=== PATIENT | male | born 1945 | race Caucasian/White ===

== ENCOUNTER 2017-05-31 18:11 | Inpatient (IN) | payer MEDICARE ==
[2017-05-31 18:20] VITALS: BMI 33.1
[2017-05-31 20:51] LABS: BASO % 0.6 % (0.0-2.0); EOS # 0.3 K/uL (0.0-0.7); HEMOGLOBIN 12.3 g/dL (12.0-18.0); LYMPH # 1.6 K/uL (1.0-4.3); LYMPH % 24.5 % (20.0-40.0); MEAN CELL VOLUME 90.7 fL (80.0-94.0); MEAN CORPUSCULAR HEMOGLOBIN 31.1 pg (27.0-31.0); MEAN CORPUSCULAR HGB CONC 34.3 g/dL (33.0-37.0); MONO # 0.4 K/uL (0.0-0.8); MONO % 6.5 % (0.0-10.0); NEUT # 4.3 K/uL (1.8-7.0); NEUT % 64.4 % (50.0-75.0); RBC 3.96 Mil/uL (4.40-5.90); RED CELL DISTRIBUTION WIDTH 12.4 % (11.5-14.5); WHITE BLOOD COUNT 6.7 K/uL (4.8-10.8)
[2017-05-31 20:59] LABS: ALB/GLOB RATIO 1.2 (1.0-2.1); ALBUMIN 4.3 g/dL (3.5-5.0); ALT/SGPT 35 U/L (21-72); AST/SGOT 25 U/L (17-59); BLOOD UREA NITROGEN 23 mg/dL (9-20); CALCIUM 9.3 mg/dl (8.6-10.4); GFR AFRICAN-AMERICAN 38; GFR NON-AFRICAN AMERICAN 31; HDL CHOLESTEROL 31 mg/dL (30-70); MAGNESIUM 1.6 mg/dL (1.6-2.3)
[2017-05-31 21:10] LABS: LDL CHOLESTEROL 88 mg/dL (0-129)
--- NOTE | 2017-05-31 21:48 | CT ---
EXAM: CT Head Without Intravenous Contrast CLINICAL HISTORY: 72 years old, male; Signs and symptoms; Hemiplegia and hemiparesis; Dominant right side; Other: Numbness; Additional info: Left sided numbness x 3 days TECHNIQUE: Axial computed tomography images of the head/brain without intravenous contrast. All CT scans at this facility use one or more dose reduction techniques, viz.: automated exposure control; ma/kV adjustment per patient size (including targeted exams where dose is matched to indication; i.e. head); or iterative reconstruction technique. Coronal and sagittal reformatted images were created and reviewed. COMPARISON: No relevant prior studies available. FINDINGS: Brain: Mild atrophy. No intracranial hemorrhage. No mass. Few scattered foci of decreased attenuation within periventricular/subcortical white matter. No definite edema. Ventricles: No hydrocephalus. Bones/joints: No acute fracture. Soft tissues: Unremarkable. Vasculature: Mild atherosclerotic disease of intracranial arteries. Sinuses: No acute sinusitis. Mastoid air cells: No mastoid effusion. Orbits: Unremarkable as visualized. IMPRESSION: 1. Nonspecific white matter changes. Acute infarction may be CT occult within first 24 hours. If a focal deficit persists, consider followup CT or MRI for further evaluation. 2. Incidental/non-acute findings are described above.
--- NOTE | 2017-05-31 22:15 | C.PDOC ---
Time Seen by Provider: 05/31/17 20:19 Chief Complaint (Nursing): Weakness/Neurological Deficit History Per: Patient, Family (daughter) Onset/Duration Of Symptoms: Days (3) Current Symptoms Are (Timing): Still Present Seizure Or Post-ictal Symptoms: None Fall Associated With With Symptoms: No Injury As Result Of Fall Severity: Moderate Additional History Per: Prior Records - Symptoms Of CVA Character Of Deficits: Left: Sensory Loss, Arm: Sensory Loss, Leg: Sensory Loss Recent Head Trauma: No Past Medical History Reviewed: Historical Data, Nursing Documentation, Vital Signs Vital Signs: Last Vital Signs Temp 98.1 F 05/31/17 20:14 Pulse 74 05/31/17 20:14 Resp 19 05/31/17 20:14 BP 153/75 H 05/31/17 20:14 Pulse Ox 97 05/31/17 20:14 - Medical History PMH: Anxiety, CAD, Depression, Diabetes, Diverticulitis, HTN, Hypercholesterolemia, Hyperthyroidism, Hypothyroidism, Kidney Stones, Pancreatitis, Chronic Kidney Disease, TIA Surgical History: Cholecystectomy, Coronary Stent, Hernia Repair (right inguinal ) - [facility] Procedures CLOSED ENDOSCOPIC BIOPSY OF LARGE INTESTINE (09/23/13) ESOPHAGOGASTRODUODENOSCOPY [EGD] W/CLOSED BIOPSY (04/15/14) Family History: States: Unknown Family Hx - Social History Hx Tobacco Use: No Hx Alcohol Use: No Hx Substance Use: No - Immunization History Hx Tetanus Toxoid Vaccination: Yes Hx Influenza Vaccination: Yes Hx Pneumococcal Vaccination: Yes Review Of Systems Except As Marked, All Systems Reviewed And Found Negative. Constitutional: Negative for: Fever Eyes: Negative for: Vision Change Cardiovascular: Negative for: Chest Pain Respiratory: Negative for: Shortness of Breath Gastrointestinal: Negative for: Vomiting, Abdominal Pain Musculoskeletal: Negative for: Neck Pain, Back Pain Skin: Negative for: Rash Neurological: Positive for: Numbness (left side). Negative for: Seizures, Headache Physical Exam - Physical Exam Appears: No Acute Distress, Chronically Ill Skin: Normal Color, Warm, Dry Head: Atraumatic, Normacephalic Eye(s): bilateral: PERRL, EOMI Neck: Normal ROM, Supple Cardiovascular: Rhythm Regular Respiratory: Normal Breath Sounds, No Accessory Muscle Use Gastrointestinal/Abdominal: Soft, No Tenderness Extremity: Normal ROM Neurological/Psych: Oriented x3, Normal Speech, No Cerebellar Signs, Normal Motor, No Normal Sensation (subjective difference in sensation between left and right side) ED Course And Treatment - Laboratory Results Result Diagrams: 05/31/17 20:42 05/31/17 20:42 Interpretation Of Abnormal: Renal insufficiency ECG: Interpreted By Me, Viewed By Me ECG Rhythm: Sinus Rhythm, Nonspecific Changes ECG Interpretation: No Acute Changes Rate From EC O2 Sat by Pulse Oximetry: 97 Pulse Ox Interpretation: Normal - CT Scan/US CT head Other Rad Studies (CT/US): Read By Radiologist, Radiology Report Reviewed CT/US Interpretation: IMPRESSION: 1. Nonspecific white matter changes. Acute infarction may be CT occult within. first 24 hours. If a focal deficit persists, consider followup CT or MRI for. further evaluation. 2. Incidental/ non-acute findings are described above. - Physician Consult Information Physician Contacted: Josiah Ayala (Neuro) Outcome Of Conversation: He wants pt admitted to the hospital for further evaluation and treatment. NIHSS Stroke Scale 2 - Date/Time Evaluation Performed Date Performed: 05/31/17 When Was NIHSS Performed: Baseline - How Severe is the Stroke Level of Consciousness: 0=Alert LOC to Questions: 0=Both comments correct LOC to commands: 0=Obeys both correctly Best Gaze: 0=Normal Visual: 0=No visual loss Facial: 0=Normal Motor Arm - Left: 0=No drift Motor Arm - Right: 0=No drift Motor Leg - Left: 0=No drift Motor Leg - Right: 0=No drift Limb Ataxia: 0=Absent Sensory: 1=Mild to moderate loss Best Language: 0=No aphasia Dysarthia: 0=Normal articulation Extinction & Inattention (Neglect): 0=Normal, no object Score: 1 Severity Of Stroke: 1-4 = Minor Stroke Progress - Interventions Interventions:: Observation, Intravenous fluid - Medications Administered Oral: Aspirin - Data Reviewed Data Reviewed: Lab, Diagnostic imaging, EKG, Old records - Patient Status Patient status: Unchanged - Continuity of Care Discussed patient case with:: Patient, Family-HIPPA compliant, ED Nurse Discussed pt. case with senior telecommunications consultant/specialty: Neurology - Patient Plan Patient Plan: Admission, Telemetry rTPA Inclusion/Exclusion - Inclusion Criteria for Altepase Patient is 18 years or Older: Yes The Clinical Diagnosis of Ischemic Stroke That is Causing a Potentially Disabling Neurological Deficit: Yes Time of Onset is Well Established to be Less Than 270 Minute Before Treatment Would Begin: No Risk/Benefit Discussed With Patient/Family Member Present: No - Warning to TPA With Conditions Condition: Stroke Serevity Too Mild Disposition Discussed With Dr.: Edvin Hung Comment: He accepted pt on his service. Doctor Will See Patient In The: Hospital Counseled Patient/Family Regarding: Studies Performed, Diagnosis - Disposition Disposition: HOSPITALIZED Disposition Time: 22:19 Condition: FAIR - Clinical Impression Clinical Impression: Left sided numbness
[2017-05-31] MEDS ORDERED: Sodium Chloride 0.9% 1,000 ML ONE (22:39)
[2017-05-31] MEDS: Sodium Chloride 0.9% 1,000 ML IV SCH (22:40)
[2017-06-01 07:38] VITALS: RESP 20
--- NOTE | 2017-06-01 09:02 | RAD ---
HISTORY: Left side numbness COMPARISON: 06/11/2015 FINDINGS: LUNGS: No active pulmonary disease. PLEURA: No significant pleural effusion identified, no pneumothorax apparent. CARDIOVASCULAR: Normal. OSSEOUS STRUCTURES: No significant abnormalities. VISUALIZED UPPER ABDOMEN: Normal. OTHER FINDINGS: None. IMPRESSION: No active disease.
[2017-06-01] MEDS: Sodium Chloride 0.9% 1,000 ML IV SCH (09:42)
--- NOTE | 2017-06-01 11:59 | MRI ---
PROCEDURE: MRI of the brain 06/01/2017. HISTORY: Left sided weakness COMPARISON: Comparison made with CT scan brain dated 05/31/2017. Correlation also made with concurrent MRA's of the neck and brain. TECHNIQUE: Multiplanar, multisequence MR images of the brain were obtained without intravenous contrast enhancement. FINDINGS: HEMORRHAGE: No acute parenchymal, subarachnoid or extra-axial hemorrhage. . No evidence of hemosiderin deposition is identified on gradient echo weighted sequence. DWI: No evidence of an acute or early subacute infarction seen on diffusion imaging. BRAIN PARENCHYMA: Minimal slightly confluent prolonged T2 signal changes seen within the periventricular white matter with multiple small more discrete focal areas of increased T2 signal scattered about the deep and subcortical white matter both cerebral hemispheres. There also appear to be a few scattered on foci of similar signal both basal nuclei Changes are most likely represent chronic sequela of small vessel disease. Mild moderate age-appropriate volume loss. VENTRICLES: No obstructive hydrocephalus. CRANIUM: No acute calvarial abnormalities are identified. . ORBITS: Changes of bilateral cataract surgery again noted. PARANASAL SINUSES/MASTOIDS: Clear VASCULAR SYSTEM: Visualized major vascular flow voids at skull base are patent. OTHER FINDINGS: None. IMPRESSION: No acute intracranial hemorrhage or infarct. Mild chronic white matter ischemic changes. Mild moderate generalized volume loss.
--- NOTE | 2017-06-01 12:04 | MRI ---
PROCEDURE: Magnetic Resonance Angiography Brain HISTORY: Left-sided weakness COMPARISON: Correlation made with concurrent MRA of the neck and MRI brain. TECHNIQUE: 3D time of flight MR angiography of the intracranial arteries was performed. Rotating maximum intensity projection images were generated. FINDINGS: INTERNAL CAROTID ARTERIES: Unremarkable. The skull base, petrous, cavernous and supraclinoid segments are bilaterally widely patient. ANTERIOR CEREBRAL ARTERIES: Unremarkable. A1 and A2 segments are widely patent. Smaller distal branches unremarkable, as visualized. MIDDLE CEREBRAL ARTERIES: Unremarkable. M1 and M2 segments are widely patent. Perisylvian branches grossly symmetric. POSTERIOR CIRCULATION: Basilar Artery: Unremarkable. Distal Vertebral Arteries: Unremarkable. Posterior Cerebral Arteries: There is a origin of the right posterior cerebral artery with secondary mild hypoplasia of the P1 segment arising from the basilar artery. Posterior Inferior Cerebellar Arteries: Unremarkable. ANEURYSM/ VASCULAR MALFORMATIONS: No evidence of large aneurysm nor vascular malformation. . OTHER FINDINGS: None. IMPRESSION: Unremarkable MR angiography of the brain no evidence of occlusion or significant stenotic lesions seen. .
--- NOTE | 2017-06-01 12:17 | CP.PCM.CON ---
History of Present Illness - History of Present Illness History of Present Illness: 72 yr old male who presents with left arm numbness and tingling, duration for less than one day, and a vague complaint of dizziness. He denies headache, dysarthria, aphasia, but there was a complaint of left face, arm and leg sensory complaints. PMH: Anxiety, CAD, Depression, Diabetes, Diverticulitis, HTN, Hypercholesterolemia, Hyperthyroidism, Hypothyroidism, Kidney Stones, Pancreatitis, Chronic Kidney Disease, TIA Surgical History: Cholecystectomy, Coronary Stent, Hernia Repair (right inguinal ) CLOSED ENDOSCOPIC BIOPSY OF LARGE INTESTINE (09/23/13) ESOPHAGOGASTRODUODENOSCOPY [EGD] W/CLOSED BIOPSY (04/15/14) Family History: States: Unknown Family Hx SH: Patient is comoran speaking only. It is unknown what he does for work or if smokes or drinks. on exam: Exam conducted in comoran AAOX3. Pupils 3mm-2mm with light. EOMI. CN 2-12 normal. No diplopia. VFF motor: strength: normal bilaterally. sensory: decreased ft, pin left face, and arm. NO rhomberg. DTR: +2 ul and ll bl. Toes downgoing, no clonus. Gait normal. Past Patient History - Infectious Disease Hx of Infectious Diseases: None - Tetanus Immunizations Tetanus Immunization: Unknown - Past Medical History & Family History Past Medical History?: Yes - Past Social History Smoking Status: Never Smoked - CARDIAC Hx Hypercholesterolemia: Yes Hx Hypertension: Yes - PULMONARY Hx Respiratory Disorders: No - NEUROLOGICAL Hx Transient Ischemic Attacks (TIA): Yes - HEENT Hx HEENT Problems: Yes Hx Glaucoma: Yes - RENAL Hx Chronic Kidney Disease: Yes Hx Kidney Stones: Yes - ENDOCRINE/METABOLIC Hx Hyperthyroidism: Yes Hx Hypothyroidism: Yes - HEMATOLOGICAL/ONCOLOGICAL Hx Blood Disorders: No - INTEGUMENTARY Hx Dermatological Problems: No - MUSCULOSKELETAL/RHEUMATOLOGICAL Hx Musculoskeletal Disorders: No Hx Falls: No - GASTROINTESTINAL Hx Diverticulitis: Yes Hx Pancreatitis: Yes - GENITOURINARY/GYNECOLOGICAL Hx Genitourinary Disorders: No - PSYCHIATRIC Hx Anxiety: Yes Hx Depression: Yes Hx Substance Use: No - SURGICAL HISTORY Hx Cholecystectomy: Yes Hx Coronary Stent: Yes - ANESTHESIA Hx Anesthesia: Yes Hx Anesthesia Reactions: No Hx Malignant Hyperthermia: No Meds Allergies/Adverse Reactions: Allergies Allergy/AdvReac Type Severity Reaction Status Date / Time No Known Allergies Allergy Verified 05/31/17 18:19 - Medications Medications: Current Medications Aspirin (Aspirin Chewable) 81 mg PO DAILY [facility] Sodium Chloride (Sodium Chloride 0.9%) 1,000 mls @ 100 mls/hr IV .Q10H MAGDI Last Admin: 06/01/17 09:42 Dose: 100 mls/hr Results - Vital Signs Recent Vital Signs: Last Vital Signs Temp 97.5 F L 06/01/17 07:24 Pulse 64 06/01/17 07:24 Resp 20 06/01/17 07:24 BP 119/58 L 06/01/17 07:24 Pulse Ox 97 06/01/17 07:24 - Labs Result Diagrams: 05/31/17 20:42 05/31/17 20:42 Labs: Laboratory Results - last 24 hr 05/31/17 05/31/17 05/31/17 20:42 20:42 20:42 WBC 6.7 RBC 3.96 L Hgb 12.3 Hct 35.9 MCV 90.7 MCH 31.1 H MCHC 34.3 RDW 12.4 Plt Count 280 MPV 8.0 Neut % (Auto) 64.4 Lymph % (Auto) 24.5 [place] % (Auto) 6.5 Eos % (Auto) 4.0 Baso % (Auto) 0.6 Neut # (Auto) 4.3 Lymph # (Auto) 1.6 [place] # (Auto) 0.4 Eos # (Auto) 0.3 Baso # (Auto) 0.0 PT 11.0 INR 1.0 APTT 30 Sodium 135 Potassium 4.7 Chloride 98 Carbon Dioxide 22 Anion Gap 20 BUN 23 H Creatinine 2.1 H Est GFR ( Amer) 38 Est GFR (Non-Af Amer) 31 Random Glucose 112 H Hemoglobin A1c Calcium 9.3 Magnesium 1.6 Total Bilirubin 0.6 AST 25 ALT 35 Alkaline Phosphatase 75 Troponin I < 0.0120 Total Protein 7.9 Albumin 4.3 Globulin 3.6 Albumin/Globulin Ratio 1.2 Triglycerides 189 H D Cholesterol 153 LDL Cholesterol Direct 88 HDL Cholesterol 31 05/31/17 20:43 WBC RBC Hgb Hct MCV MCH MCHC RDW Plt Count MPV Neut % (Auto) Lymph % (Auto) [place] % (Auto) Eos % (Auto) Baso % (Auto) Neut # (Auto) Lymph # (Auto) [place] # (Auto) Eos # (Auto) Baso # (Auto) PT INR APTT Sodium Potassium Chloride Carbon Dioxide Anion Gap BUN Creatinine Est GFR ( Amer) Est GFR (Non-Af Amer) Random Glucose Hemoglobin A1c 7.6 H Calcium Magnesium Total Bilirubin AST ALT Alkaline Phosphatase Troponin I Total Protein Albumin Globulin Albumin/Globulin Ratio Triglycerides Cholesterol LDL Cholesterol Direct HDL Cholesterol - Imaging and Cardiology CT scan - head Status: Image reviewed by me, Report reviewed by me (CT head and MRI and MRA head reviewed: normal, no stroke, no tumor, no hemorrhage. ) Assessment & Plan - Assessment and Plan (Free Text) Assessment: 72 yr old male with vague complaint of left face, ?arm and leg numbness who has a normal exam except for subjective complaints, and normal neuroimaging, that is most likely not TIA or stroke. Plan: 1. start aspirin. 2. No other neurological recommendations at this point. Thank you.
--- NOTE | 2017-06-01 12:24 | MRI ---
PROCEDURE: MR Angiography of the neck without contrast show HISTORY: left sided weakness COMPARISON: None available. TECHNIQUE: 3D [id number] angiography of the neck was performed. Rotating maximum intensity projection images of the cervical carotid and vertebral arteries were generated. The origins of the common carotid arteries were not visualized, which is a limitation inherent to the non-contrast time of flight technique. FINDINGS: RIGHT CAROTID ARTERIES: There also appears to be some mild somewhat irregular narrowing of the right carotid bifurcation and proximal internal carotid artery. Correlation with carotid Doppler exam determine percent diameter stenosis . LEFT CAROTID ARTERIES: There appears to be mild irregular narrowing of the distal left common carotid artery, carotid bifurcation and proximal internal carotid artery. Percent diameter narrowing estimated at approximately 50-60 %. Correlation with carotid Doppler exam recommended to determine percent diameter stenosis VERTEBRAL ARTERIES: Right and left vertebral arteries appear relatively symmetric in caliber and patent throughout. OTHER FINDINGS: None. IMPRESSION: Moderate stenosis left internal carotid artery estimated between 50-60 percent. Mild stenosis proximal right internal carotid artery. Correlation with carotid Doppler recommended for further correlation and confirmation of percent diameter stenosis
--- NOTE | 2017-06-01 14:46 | CP.PCM.HP ---
Past Patient History - Infectious Disease Hx of Infectious Diseases: None - Tetanus Immunizations Tetanus Immunization: Unknown - Past Medical History & Family History Past Medical History?: Yes - Past Social History Smoking Status: Never Smoked - CARDIAC Hx Hypercholesterolemia: Yes Hx Hypertension: Yes - PULMONARY Hx Respiratory Disorders: No - NEUROLOGICAL Hx Transient Ischemic Attacks (TIA): Yes - HEENT Hx HEENT Problems: Yes Hx Glaucoma: Yes - RENAL Hx Chronic Kidney Disease: Yes Hx Kidney Stones: Yes - ENDOCRINE/METABOLIC Hx Hyperthyroidism: Yes Hx Hypothyroidism: Yes - HEMATOLOGICAL/ONCOLOGICAL Hx Blood Disorders: No - INTEGUMENTARY Hx Dermatological Problems: No - MUSCULOSKELETAL/RHEUMATOLOGICAL Hx Musculoskeletal Disorders: No Hx Falls: No - GASTROINTESTINAL Hx Diverticulitis: Yes Hx Pancreatitis: Yes - GENITOURINARY/GYNECOLOGICAL Hx Genitourinary Disorders: No - PSYCHIATRIC Hx Anxiety: Yes Hx Depression: Yes Hx Substance Use: No - SURGICAL HISTORY Hx Cholecystectomy: Yes Hx Coronary Stent: Yes - ANESTHESIA Hx Anesthesia: Yes Hx Anesthesia Reactions: No Hx Malignant Hyperthermia: No Meds Allergies/Adverse Reactions: Allergies Allergy/AdvReac Type Severity Reaction Status Date / Time No Known Allergies Allergy Verified 05/31/17 18:19 Results - Vital Signs Recent Vital Signs: Last Vital Signs Temp 97.5 F L 06/01/17 07:24 Pulse 64 06/01/17 07:24 Resp 20 06/01/17 07:24 BP 119/58 L 06/01/17 07:24 Pulse Ox 97 06/01/17 07:24 - Labs Result Diagrams: 05/31/17 20:42 05/31/17 20:42 Labs: Laboratory Results - last 24 hr 05/31/17 05/31/17 05/31/17 20:42 20:42 20:42 WBC 6.7 RBC 3.96 L Hgb 12.3 Hct 35.9 MCV 90.7 MCH 31.1 H MCHC 34.3 RDW 12.4 Plt Count 280 MPV 8.0 Neut % (Auto) 64.4 Lymph % (Auto) 24.5 [place] % (Auto) 6.5 Eos % (Auto) 4.0 Baso % (Auto) 0.6 Neut # (Auto) 4.3 Lymph # (Auto) 1.6 [place] # (Auto) 0.4 Eos # (Auto) 0.3 Baso # (Auto) 0.0 PT 11.0 INR 1.0 APTT 30 Sodium 135 Potassium 4.7 Chloride 98 Carbon Dioxide 22 Anion Gap 20 BUN 23 H Creatinine 2.1 H Est GFR ( Amer) 38 Est GFR (Non-Af Amer) 31 Random Glucose 112 H Hemoglobin A1c Calcium 9.3 Magnesium 1.6 Total Bilirubin 0.6 AST 25 ALT 35 Alkaline Phosphatase 75 Troponin I < 0.0120 Total Protein 7.9 Albumin 4.3 Globulin 3.6 Albumin/Globulin Ratio 1.2 Triglycerides 189 H D Cholesterol 153 LDL Cholesterol Direct 88 HDL Cholesterol 31 05/31/17 20:43 WBC RBC Hgb Hct MCV MCH MCHC RDW Plt Count MPV Neut % (Auto) Lymph % (Auto) [place] % (Auto) Eos % (Auto) Baso % (Auto) Neut # (Auto) Lymph # (Auto) [place] # (Auto) Eos # (Auto) Baso # (Auto) PT INR APTT Sodium Potassium Chloride Carbon Dioxide Anion Gap BUN Creatinine Est GFR ( Amer) Est GFR (Non-Af Amer) Random Glucose Hemoglobin A1c 7.6 H Calcium Magnesium Total Bilirubin AST ALT Alkaline Phosphatase Troponin I Total Protein Albumin Globulin Albumin/Globulin Ratio Triglycerides Cholesterol LDL Cholesterol Direct HDL Cholesterol
[2017-06-01 14:54] VITALS: BP 169/71; TEMP 98.7
[2017-06-01 16:23] VITALS: PULSE 80; O2SAT 97
--- NOTE | 2017-06-01 22:38 | CARD ---
APPROVED REPORT EKG Measurement Heart [id number] <Conclusion> Normal sinus rhythm Poor R wave progression. Borderline EKG
--- NOTE | 2017-06-02 11:02 | VASCLAB ---
PROCEDURE: HISTORY: left side weakness COMPARISON: None available. TECHNIQUE: Grayscale and duplex Doppler evaluation of the cervical carotid and vertebral arteries were performed. The common carotid, carotid bifurcations and cervical Internal Carotid Artery (ICA) and proximal External Carotid Artery (ECA) were evaluated. The vertebral arteries were evaluated for gross patency and flow direction. Report prepared by Master Short, BS, RVT FINDINGS: RIGHT CAROTID ARTERIES: 1. Common Carotid Artery: No significant focal plaque formation of the right common carotid artery. Maximum Peak Systolic velocity: 74 cm/sec: End-diastolic velocity 17 cm/sec. 2. Carotid Bifurcation: plaque formation. Maximum Peak Systolic velocity: 56 cm/sec: End-diastolic velocity 12 cm/sec. 3. Internal Carotid Artery: Plaque description: 3.1. Proximal Segment: Peak systolic velocity 79 cm/sec: End-diastolic velocity 14 cm/sec - % stenosis 0-15% 3.2. Middle Segment: Peak systolic velocity 84 cm/sec: End-diastolic velocity 24 cm/sec - % stenosis 0-15% 3.3. Distal Segment: Peak systolic velocity 54 cm/sec: End-diastolic velocity 14 cm/sec - % stenosis 0-15% 4. External Carotid Artery: No significant focal plaque formation. Peak systolic velocity 98 cm/sec 5. ICA/CCA Ratio: 1.1 LEFT CAROTID ARTERIES: 1. Common Carotid Artery: No significant focal plaque formation of the left common carotid artery. Maximum Peak Systolic velocity: 72 cm/sec: End-diastolic velocity 15 cm/sec. 2. Carotid Bifurcation: plaque formation. Maximum Peak Systolic velocity: 83 cm/sec: End-diastolic velocity 14 cm/sec. 3. Internal Carotid Artery: Plaque description: 3.1. Proximal Segment: Peak systolic velocity 83 cm/sec: End-diastolic velocity 20 cm/sec - % stenosis 0-15% 3.2. Middle Segment: Peak systolic velocity 98 cm/sec: End-diastolic velocity 25 cm/sec - % stenosis 0-15% 3.3. Distal Segment: Peak systolic velocity 96 cm/sec: End-diastolic velocity 32 cm/sec - % stenosis 0-15% 4. External Carotid Artery: No significant focal plaque formation. Peak systolic velocity 88 cm/sec 5. ICA/CCA Ratio: 1.4 VERTEBRAL ARTERIES: 1. Right Vertebral Artery: The right vertebral artery flow direction is antegrade. 2. Left Vertebral Artery: The left vertebral artery flow direction is antegrade. OTHER FINDINGS: 1. Right Brachial Blood pressure: 162 mmHg. 2. Left Brachial Blood pressure: 156 mmHg. IMPRESSION: RIGHT: Duplex scan does not suggest hemodynamically significant stenosis of the right extracranial carotid arteries. LEFT: Duplex scan does not suggest hemodynamically significant stenosis of the left extracranial carotid arteries.
== END 2017-06-01 16:14 | disposition home or self-care (01) | DRG 93 ==
LOC: C.ER 18:11 → C.9E 22:21
PROVIDERS: ADMIT General Practice; ATTEND Internal Medicine Nephrology
DX: R20.0 Anesthesia of skin (principal); E11.22 Type 2 diabetes mellitus with diabetic chronic kidney disease; E03.9 Hypothyroidism, unspecified; E78.00 Pure hypercholesterolemia, unspecified; I12.9 Hypertensive chronic kidney disease with stage 1 through stage 4 chronic kidney disease, or unspecified chronic kidney disease; I25.10 Atherosclerotic heart disease of native coronary artery without angina pectoris; R53.1 Weakness; N18.9 Chronic kidney disease, unspecified; Z86.73 Personal history of transient ischemic attack (TIA), and cerebral infarction without residual deficits; Z87.442 Personal history of urinary calculi; Z95.5 Presence of coronary angioplasty implant and graft

== ENCOUNTER 2018-06-30 10:05 | Observation (INO) | payer MEDICARE ==
[2018-06-30] MEDS ORDERED: Sodium Chloride 0.9% 1,000 ML IV ONE ×2 (11:23→12:41)
[2018-06-30] MEDS ORDERED: MethylPREDNISolone 40 mg Vial IVP STA (11:25)
[2018-06-30] MEDS ORDERED: MethylPREDNISolone 40 mg Vial ONE (11:34)
[2018-06-30] MEDS ORDERED: Sodium Chloride 0.9% 1,000 ML ONE ×2 (11:34→13:03)
[2018-06-30 11:56] LABS: BASO % 0.7 % (0.0-2.0); EOS # 0.3 K/uL (0.0-0.7); EOS % 4.7 % (0.0-4.0); HEMOGLOBIN 13.2 g/dL (12.0-18.0); LYMPH # 1.2 K/uL (1.0-4.3); LYMPH % 18.4 % (20.0-40.0); MEAN CELL VOLUME 91.9 fL (80.0-94.0); MEAN CORPUSCULAR HEMOGLOBIN 31.7 pg (27.0-31.0); MEAN CORPUSCULAR HGB CONC 34.5 g/dL (33.0-37.0); MEAN PLATELET VOLUME 9.1 fL (7.2-11.7); MONO # 0.5 K/uL (0.0-0.8); MONO % 8.2 % (0.0-10.0); NEUT # 4.3 K/uL (1.8-7.0); RBC 4.15 Mil/uL (4.40-5.90); RED CELL DISTRIBUTION WIDTH 12.5 % (11.5-14.5); WHITE BLOOD COUNT 6.3 K/uL (4.8-10.8)
[2018-06-30 12:04] LABS: PROTHROMBIN TIME 10.7 SECONDS (9.7-12.2)
--- NOTE | 2018-06-30 12:18 | CT ---
Date of service: 06/30/2018 PROCEDURE: CT Lumbar Spine without contrast HISTORY: Pain, leg numbness COMPARISON: None available. TECHNIQUE: Axial computed tomography images were obtained of the lumbar spine without the use of intravenous contrast. Coronal and sagittal reformatted images were created and reviewed. Radiation dose: Total exam DLP = 612.85 mGy-cm. This CT exam was performed using one or more of the following dose reduction techniques: Automated exposure control, adjustment of the mA and/or kV according to patient size, and/or use of iterative reconstruction technique. FINDINGS: VERTEBRAE: There is normal alignment of the lumbar vertebral bodies. There is normal lumbar lordosis. There is no acute fracture, spondylolysis or spondylolisthesis. There is diffuse bone demineralization. DISCS/SPINAL CANAL/NEURAL FORAMINA: Evaluation of the discs and spinal canal is limited on noncontrast CT examination. Allowing for this, there is mild reduced disc height at L5-S1. L1-2: Mild posterior disc bulge without central spinal canal stenosis or neural foraminal narrowing. L2-3: Mild posterior disc bulge without spinal canal stenosis or neural foraminal narrowing. L3-4: Diffuse posterior disc bulge indents the ventral thecal sac without central spinal canal stenosis. Severe bilateral facet arthropathy contribute to moderate to severe right and severe left neural foraminal narrowing. L4-5: Diffuse posterior disc bulge indents the ventral thecal sac without central spinal canal stenosis. Moderate right and severe left facet arthropathy contribute to moderate to severe right and severe left neural foraminal narrowing. L5-S1: Diffuse posterior disc bulge indents the ventral thecal sac without central spinal canal stenosis. Severe bilateral facet arthropathy contribute to severe right and moderate to severe left neural foraminal narrowing. Also noted is a superimposed right far lateral disc protrusion which likely impinges on the exiting right L5 nerve root. PARASPINAL SOFT TISSUES: The paraspinous soft tissues are normal. Imaged portion of the retroperitoneum reveal an exophytic simple cyst in the lower pole of the left kidney. OTHER FINDINGS: None. IMPRESSION: 1. No acute fracture or spondylolysis. 2. Multilevel degenerative disc disease, worse at L5-S1 with a diffuse posterior disc bulge without central spinal canal stenosis, severe right and moderate to severe left neural foraminal narrowing. Superimposed right far lateral disc protrusion likely impinges on the exiting right L5 nerve root.
[2018-06-30 12:31] LABS: ALB/GLOB RATIO 1.4 (1.0-2.1); ALBUMIN 4.3 g/dL (3.5-5.0); ALT/SGPT 7 U/L (21-72); AST/SGOT 25 U/L (17-59); BLOOD UREA NITROGEN 11 mg/dL (9-20); CALCIUM 9.3 mg/dl (8.6-10.4); GFR NON-AFRICAN AMERICAN 43
--- NOTE | 2018-06-30 12:35 | C.PDOC ---
History Of Present Illness 73 y/o male with a PMHx of HTN, CAD, and NIDDM presents to the ED for evaluation of intermittent left lower leg pain for 4 years, worse for the last 4 days. Patient reports the pain is worse with weight bearing and ambulation. Pt also reports, " sometimes feels my all left side in pain from neck down to left shoulder and to Left leg". He otherwise denies any known trauma or injury, denies headache, dizziness, neck pain, chest pain, SOB, dyspnea, palpitation, cough, abd. pain, V/D, denies left leg weakness, or sensorivascular deficits. Ambulatory, not in any apparent distress. Time Seen by Provider: 06/30/18 11:06 Chief Complaint (Nursing): Lower Extremity Problem/Injury History Per: Patient History/Exam Limitations: no limitations Onset/Duration Of Symptoms: Intermittent Episodes, Worse Since (4 days ago) Current Symptoms Are (Timing): Still Present Severity: Moderate Past Medical History Reviewed: Historical Data, Nursing Documentation, Vital Signs Vital Signs: Last Vital Signs Temp 97.7 F 06/30/18 10:07 Pulse 89 06/30/18 10:07 Resp 18 06/30/18 10:07 BP 137/81 06/30/18 10:07 Pulse Ox 98 06/30/18 10:07 - Medical History PMH: Anxiety, CAD, Depression, Diabetes, Diverticulitis, HTN, Hypercholesterolemia, Hyperthyroidism, Hypothyroidism, Kidney Stones, Pancreatitis, Chronic Kidney Disease, TIA Surgical History: Cholecystectomy, Coronary Stent, Hernia Repair (right inguinal) - [facility] Procedures CLOSED ENDOSCOPIC BIOPSY OF LARGE INTESTINE (09/23/13) ESOPHAGOGASTRODUODENOSCOPY [EGD] W/CLOSED BIOPSY (04/15/14) Family History: States: Unknown Family Hx - Social History Hx Tobacco Use: No Hx Alcohol Use: No Hx Substance Use: No - Immunization History Hx Tetanus Toxoid Vaccination: Yes Hx Influenza Vaccination: Yes Hx Pneumococcal Vaccination: Yes Review Of Systems Constitutional: Negative for: Fever, Chills Eyes: Negative for: Vision Change Cardiovascular: Negative for: Chest Pain, Palpitations Respiratory: Negative for: Cough, Shortness of Breath, SOB with Excertion Gastrointestinal: Negative for: Nausea, Vomiting, Diarrhea Genitourinary: Negative for: Dysuria Musculoskeletal: Positive for: Leg Pain (left lower). Negative for: Back Pain Skin: Negative for: Rash, Lesions Neurological: Negative for: Weakness, Numbness, Incoordination Physical Exam - Physical Exam Appears: Well, Non-toxic, No Acute Distress Skin: Normal Color, Warm, No Rash Head: Normacephalic Eye(s): bilateral: PERRL Nose: No Flaring Oral Mucosa: Moist Throat: No Drooling Neck: Trachea Midline, Supple Cardiovascular: Rhythm Regular, No Murmur, No JVD Respiratory: No Accessory Muscle Use, No Rales, No Rhonchi, No Stridor, No Wheezing Gastrointestinal/Abdominal: Soft, No Tenderness, No Distention, No Guarding, No Rebound Back: No CVA Tenderness, No Vertebral Tenderness Extremity: Normal ROM, No Pedal Edema, Calf Tenderness (mild tenderness over the left calf), Capillary Refill (less than 2sec), No Deformity, No Swelling Pulses: Left Dorsalis Pedis: Normal, Right Dorsalis Pedis: Normal Neurological/Psych: Oriented x3, Normal Speech, Normal Motor, Normal Sensation Gait: Steady ED Course And Treatment - Laboratory Results Result Diagrams: 06/30/18 11:48 06/30/18 11:48 Lab Results: PT 10.7 SECONDS (9.7-12.2) 06/30/18 11:48 INR 1.0 06/30/18 11:48 APTT 29 SECONDS (21-34) 06/30/18 11:48 Troponin I < 0.0120 ng/mL (0.00-0.120) 06/30/18 11:48 Total Bilirubin 0.7 mg/dL (0.2-1.3) 06/30/18 11:48 AST 25 U/L (17-59) 06/30/18 11:48 ALT 7 U/L (21-72) L D 06/30/18 11:48 Alkaline Phosphatase 173 U/L (38-126) H D 06/30/18 11:48 Total Protein 7.2 g/dL (6.3-8.3) 06/30/18 11:48 Albumin 4.3 g/dL (3.5-5.0) 06/30/18 11:48 Globulin 2.9 gm/dL (2.2-3.9) 06/30/18 11:48 Albumin/Globulin Ratio 1.4 (1.0-2.1) 06/30/18 11:48 Lab Interpretation: Abnormal ECG: Interpreted By Me ECG Rhythm: Sinus Rhythm ECG Interpretation: No Acute Changes Rate From EC O2 Sat by Pulse Oximetry: 98 (on RA) Pulse Ox Interpretation: Normal - CT Scan/US CT Lumbar Spine Other Rad Studies (CT/US): Read By Radiologist, Radiology Report Reviewed CT/US Interpretation: Accession No. : [id number]. Patient Name / ID : TONE BECERRIL / [id number]. Exam Date : 06/30/2018 11:55:07 ( Approved ). Study Comment : Sex / Age : M / 73Y. Creator : Tana Castro. Dictator : Juliana Ovalles MD. Cheese Sprayer : Litigation Examiner : Juliana Ovalles MD. Approver2 : Report Date : 06/30/2018 12:01:59. My Comment : . Date of service: 06/30/2018. PROCEDURE: CT Lumbar Spine without contrast. HISTORY: Pain, leg numbness. COMPARISON: None available. TECHNIQUE: Axial computed tomography images were obtained of the lumbar spine without the use of intravenous contrast. Coronal and sagittal reformatted images were created and reviewed. Radiation dose: Total exam DLP = 612.85 mGy-cm. This CT exam was performed using one or more of the following dose reduction techniques: Automated exposure control, adjustment of the mA and/or kV according to patient size, and/or use of iterative reconstruction technique. FINDINGS: VERTEBRAE: There is normal alignment of the lumbar vertebral bodies. There is normal lumbar lordosis. There is no acute fracture, spondylolysis or spondylolisthesis. There is diffuse bone demineralization. DISCS/SPINAL CANAL/NEURAL FORAMINA: Evaluation of the discs and spinal canal is limited on noncontrast CT examination. Allowing for this, there is mild reduced disc height at L5-S1. L1-2: Mild posterior disc bulge without central spinal canal stenosis or neural foraminal narrowing. L2-3: Mild posterior disc bulge without spinal canal stenosis or neural foraminal narrowing. L3-4: Diffuse posterior disc bulge indents the ventral thecal sac without central spinal canal stenosis. Severe bilateral facet arthropathy contribute to moderate to severe right and severe left neural foraminal narrowing. L4-5: Diffuse posterior disc bulge indents the ventral thecal sac without central spinal canal stenosis. Moderate right and severe left facet arthropathy contribute to moderate to severe right and severe left neural foraminal narrowing. L5-S1: Diffuse posterior disc bulge indents the ventral thecal sac without central spinal canal stenosis. Severe bilateral facet arthropathy contribute to severe right and moderate to severe left neural foraminal narrowing. Also noted is a superimposed right far lateral disc protrusion which likely impinges on the exiting right L5 nerve root. PARASPINAL SOFT TISSUES: The paraspinous soft tissues are normal. Imaged portion of the retroperitoneum reveal an exophytic simple cyst in the lower pole of the left kidney. OTHER FINDINGS: None. IMPRESSION: 1. No acute fracture or spondylolysis. 2. Multilevel degenerative disc disease, worse at L5-S1 with a diffuse posterior disc bulge without central spinal canal stenosis, severe right and moderate to severe left neural foraminal narrowing. Superimposed right far lateral disc protrusion likely impinges on the exiting right L5 nerve root. Venous Doppler US LLL Other Rad Studies (CT/US): Radiology Report Reviewed, U/S Performed By Ct CT/US Interpretation: (-) DVT to LLE Progress Note: Administered IV fluids, 30 mg IV Toradol, and 80 mg IV solu- medrol. EKG and labs ordered and reviewed. Ordered venous duplex and CT Lumbar spine. Labs reviewed, BS is 690. Hydration, insulin initiated. AG 18. UA, ketones (-). Case discussed with ED attending and admission recommned. called, case discussed admission arranged Disposition - Disposition Disposition: HOSPITALIZED Disposition Time: 12:50 Condition: STABLE - Clinical Impression Clinical Impression: Uncontrolled diabetes mellitus, Lumbar radiculopathy, Lumbar radiculopathy - PA / ADJUNCT PSYCHOLOGY INSTRUCTOR / Resident Statement MD/DO has reviewed & agrees with the documentation as recorded. - Scribe Statement The provider has reviewed the documentation as recorded by the Maddiibnas Palmer All medical record entries made by the Scribe were at my direction and personally dictated by me. I have reviewed the chart and agree that the record accurately reflects my personal performance of the history, physical exam, medical decision making, and the department course for this patient. I have also personally directed, reviewed, and agree with the discharge instructions and disposition.
[2018-06-30] MEDS ORDERED: (Novolin R) Insulin Human Regular 100 units/ml vial IV ONE ×2 (12:43→13:18)
[2018-06-30 13:00] LABS: URINE BILIRUBIN NEGATIVE (NEGATIVE); URINE BLOOD NEGATIVE (NEGATIVE); URINE CLARITY Clear (Clear); URINE COLOR Straw (YELLOW); URINE GLUCOSE (UA) 3+ mg/dL (Normal); URINE LEUKOCYTE ESTERASE NEG Leu/uL (Negative); URINE PROTEIN NEGATIVE (NEGATIVE); URINE UROBILINOGEN NORMAL mg/dL (0.2-1.0)
[2018-06-30 13:02] LABS: VENOUS BLOOD GAS BASE EXCESS -2.9 mmol/L (0.0-2.0); VENOUS BLOOD GAS PCO2 47 mmHg (40-60); VENOUS BLOOD GAS PO2 37 mm/Hg (30-55); VENOUS BLOOD PH 7.31 (7.32-7.43)
[2018-06-30] MEDS ORDERED: (Novolin R) Insulin Human Regular 100 units/ml vial ONE ×2 (13:03→13:51)
[2018-06-30] MEDS ORDERED: Sodium Chloride 0.9% 250 ML IV ONE (13:03)
--- NOTE | 2018-06-30 15:30 | VASCLAB ---
Date of service: 06/30/2018 PROCEDURE: Left Lower Extremity Venous Duplex Exam. HISTORY: Left calf pain PRIORS: None. TECHNIQUE: Left common femoral, femoral, popliteal and posterior tibial, peroneal and great saphenous veins were evaluated. Flow was assessed with color Doppler, compressibility, assessment of phasic flow and augmentation response. Report prepared by OTF Darby, RVT FINDINGS: LEFT: 1. Common Femoral Vein: 1.1. Compressibility - Fully compressible: Thrombus - None : Flow - Phasic: Augmentation -Normal: Reflux - None. 2. Femoral Vein: 2.1. Compressibility - Fully compressible: Thrombus - None: Flow - Phasic: Augmentation -Normal: Reflux - None. 3. Popliteal Vein: 3.1. Compressibility - Fully compressible: Thrombus - None: Flow - Phasic: Augmentation -Normal: Reflux - None. 4. Posterior Tibial Vein: 4.1. Compressibility - Fully compressible: Thrombus - None: Flow - Phasic: Augmentation -Normal: Reflux - None. 5. Peroneal Vein: 5.1. Compressibility - Fully compressible: Thrombus - None: Flow - Phasic: Augmentation -Normal: Reflux - None. 6. Great Saphenous Vein: 6.1. Compressibility - Fully compressible: Thrombus - None: Flow - Phasic: Augmentation - Normal: Reflux - None. OTHER FINDINGS: IMPRESSION: No evidence of deep or superficial vein thrombosis of the left lower extremity with excellent venous flow. Normal valve function noted of the left side. Normal venous flow noted in the right common femoral vein.
[2018-06-30] MEDS ORDERED: (Novolin R) Insulin Human Regular 100 units/ml vial SC SCH (16:30)
[2018-06-30 17:46] LABS: CALCIUM 9.1 mg/dl (8.6-10.4)
--- NOTE | 2018-06-30 17:57 | CP.PCM.PN ---
Subjective - Date & Time of Evaluation Date of Evaluation: 06/30/18 Time of Evaluation: 17:57 - Subjective Subjective: H&P dictated #[id number] Objective - Vital Signs/Intake and Output Vital Signs (last 24 hours): Temp Pulse Resp BP Pulse Ox 97.7 F 69 16 152/75 H 97 06/30/18 10:07 06/30/18 14:57 06/30/18 14:57 06/30/18 14:57 06/30/18 14:57 - Medications Medications: Current Medications Insulin Human Regular (Novolin R) 0 unit SC [facility]; Protocol Last Admin: 06/30/18 17:08 Dose: 5 u - Labs Labs: 06/30/18 11:48 06/30/18 17:11 PT 10.7 SECONDS (9.7-12.2) 06/30/18 11:48 INR 1.0 06/30/18 11:48 APTT 29 SECONDS (21-34) 06/30/18 11:48
[2018-06-30 20:43] VITALS: RESP 20
[2018-06-30] MEDS: (Novolin R) Insulin Human Regular 100 units/ml vial SC SCH (22:32)
[2018-06-30 22:41] LABS: URINE BILIRUBIN NEGATIVE (NEGATIVE); URINE BLOOD NEGATIVE (NEGATIVE); URINE CLARITY Clear (Clear); URINE COLOR Straw (YELLOW); URINE GLUCOSE (UA) 3+ mg/dL (Normal); URINE LEUKOCYTE ESTERASE NEG Leu/uL (Negative); URINE PROTEIN NEGATIVE (NEGATIVE); URINE UROBILINOGEN NORMAL mg/dL (0.2-1.0)
[2018-07-01] MEDS ORDERED: (Novolin R) Insulin Human Regular 100 units/ml vial SC ONE ×2 (02:29→12:39)
[2018-07-01 05:29] LABS: URINE BILIRUBIN NEGATIVE (NEGATIVE); URINE BLOOD NEGATIVE (NEGATIVE); URINE CLARITY Clear (Clear); URINE COLOR Yellow (YELLOW); URINE GLUCOSE (UA) 3+ mg/dL (Normal); URINE LEUKOCYTE ESTERASE NEG Leu/uL (Negative); URINE PROTEIN NEGATIVE (NEGATIVE); URINE UROBILINOGEN NORMAL mg/dL (0.2-1.0)
[2018-07-01 07:08] VITALS: BMI 27.4
[2018-07-01 07:43] LABS: HEMOGLOBIN 12.1 g/dL (12.0-18.0); MEAN CELL VOLUME 91.1 fL (80.0-94.0); MEAN CORPUSCULAR HGB CONC 35.1 g/dL (33.0-37.0); RBC 3.79 Mil/uL (4.40-5.90); RED CELL DISTRIBUTION WIDTH 12.4 % (11.5-14.5)
[2018-07-01 07:49] LABS: WHITE BLOOD COUNT 9.8 K/uL (4.8-10.8)
[2018-07-01 08:02] LABS: ALB/GLOB RATIO 1.4 (1.0-2.1); ALBUMIN 3.9 g/dL (3.5-5.0); CALCIUM 9.3 mg/dl (8.6-10.4)
--- NOTE | 2018-07-01 08:49 | HP ---
CHIEF COMPLAINT: Left-sided pain, tingling, and numbness, progressively getting worse since last . HISTORY OF PRESENT ILLNESS: Mr. Claros is a 73-year-old male with past medical history of hypertension, hyperlipidemia, diabetes mellitus, peripheral arterial disease, depression, CAD status post stent placement who has been following up with Dr. Kailash Watson who has seen the patient about two to three weeks ago, came into the emergency room with complaints of progressive worsening of left foot pain, left upper extremity pain with tingling and numbness progressively getting worse and he claims that when he walks sometimes, after walking a long time, his legs give way and he loses his balance on his left side. Denies any weakness in particular part of the body. Denies any headaches or dizziness. Denies any chest pain, shortness of breath, or wheezing. Denies any nausea, vomiting, abdominal pain, diarrhea, or constipation. Denies any other neurologic symptoms. PAST MEDICAL HISTORY: As described, hypertension, diabetes mellitus, hyperlipidemia, peripheral arterial disease, depression, CAD. PAST SURGICAL HISTORY: He underwent hernia repair, underwent cardiac catheterization with stent placement x2. FAMILY HISTORY: Nothing contributory to the present illness. PERSONAL HISTORY: He is . Living with his , having three children. Retired. SOCIAL HISTORY: Denies smoking, alcohol or drug abuse. ALLERGIES: NO KNOWN DRUG ALLERGIES. MEDICATIONS: He cannot recall what medication he has been taking, but documented in the [facility] shows Lipitor 10 mg at bedtime, aspirin 325 mg daily, amlodipine 5 mg daily, Ranexa 500 mg p.o. b.i.d., ramipril 10 mg daily, Paxil 40 mg daily, metformin 1000 mg p.o. b.i.d. REVIEW OF SYSTEMS: As described in history of present illness. All other systems reviewed and were found to be negative. PHYSICAL EXAMINATION: GENERAL: Elderly male lying in bed, in no acute distress. VITAL SIGNS: Blood pressure 147/63, pulse 76, respirations 20, temperature 98 degrees Fahrenheit, O2 sats 97% on room air. HEENT: Pupils are equal, round, and reacting to light and accommodation. Extraocular muscles are intact. No icterus. No pallor. No oral thrush. No pharyngeal congestion. NECK: Supple, no JVD. LUNGS: Bilateral vesicular breath sounds. No wheezing. No rhonchi. CARDIOVASCULAR SYSTEM: S1 and S2 present. Regular. ABDOMEN: Soft, nontender, bowel sounds present. No guarding, no rigidity, no rebound tenderness noted. CENTRAL NERVOUS SYSTEM: Alert, awake, oriented x3. Power 5/5, both upper and lower extremities. Reflexes 2+. Plantars downward going. Gait, did not test. EXTREMITIES: No edema. Palpable peripheral pulses. LABORATORY DATA: Labs done from the ED; WBC 6.3, hemoglobin 13.2, hematocrit 38.1, platelets 207. PT 10.7, INR 1, PTT 29. Sodium 126, potassium 5.3, chloride 93, bicarb 20, BUN 11, creatinine 1.6, glucose 690, calcium 9.3, total bilirubin 0.7, AST 25, ALT 7, alkaline phosphatase 173, troponin less than 0.0120. Total protein 7.2, albumin 4.3. UA; specific gravity 1.024, pH 6, glucose 3+, otherwise negative. Repeat BMP shows sodium 133, potassium 4.6, chloride 99, bicarb 24, BUN 10, creatinine 1.5, glucose 379, calcium 9.1. Lumbar spine CT shows no acute fracture or spondylosis, multilevel degenerative disk disease, worse at L5-S1 with diffuse posterior disc bulge central spinal canal stenosis, [id number] left neural foraminal narrowing, superimposed right far lateral disc protrusion, impinges on the exiting right L5 nerve root. Lower extremity Doppler shows no evidence of superficial vein thrombosis. EKG consistent with normal sinus rhythm at 72 beats per minute, no acute ST-T changes noted. ASSESSMENT AND PLAN: Elderly male with history of hypertension, diabetes mellitus, hyperlipidemia, peripheral arterial disease, coronary artery disease status post stent placement, admitted for left foot pain, tingling and left upper extremity pain, progressively getting worse. CT of the lumbar spine shows multilevel degenerative joint disease with disc protrusion likely impinges on the exiting L5 nerve root. In the emergency department, the patient received Solu-Medrol and his sugars increased to 600 and the patient is being admitted for further management. 1. Left upper and lower extremity pain and lumbar radiculopathy with degenerative joint disease and hyperglycemia. 2. Diabetes mellitus. 3. Hypertension. 4. Hyperlipidemia. 5. Coronary artery disease with stent placement. 6. Peripheral arterial disease. PLAN: The patient is being admitted. We will do neuro-checks. We will check CT of the head. We will check B12, folate level. We will give pain medication for neuropathy. Continue with his home medications. Do Accu-Chek before every meal and at bedtime. We will obtain neurology consult with Dr. Woodard. Advised the patient to bring his home medication list. We will add further recommendations as his clinical course progresses. Zehra Mosher MD
[2018-07-01] MEDS: Aspirin 325 mg EC Tablets PO SCH (09:02)
[2018-07-01] MEDS: (Novolin R) Insulin Human Regular 100 units/ml vial SC SCH ×2 (09:03→13:18)
--- NOTE | 2018-07-01 09:04 | CP.PCM.PN ---
Subjective - Date & Time of Evaluation Date of Evaluation: 07/01/18 Time of Evaluation: 09:04 - Subjective Subjective: Progress note dictated #[id number] Objective - Vital Signs/Intake and Output Vital Signs (last 24 hours): Temp Pulse Resp BP Pulse Ox 97.4 F L 53 L 20 152/70 H 95 07/01/18 08:36 07/01/18 08:36 07/01/18 08:36 07/01/18 08:36 07/01/18 08:36 Intake and Output: 07/01/18 07/01/18 06:59 18:59 Intake Total 120 Balance 120 - Medications Medications: Current Medications Aspirin (Ecotrin) 325 mg PO DAILY [facility] Last Admin: 07/01/18 09:02 Dose: 325 mg Gabapentin (Neurontin) 300 mg PO TID [facility] Last Admin: 07/01/18 09:03 Dose: 300 mg Influenza Virus Vaccine (Flucelvax Quad [id number] Syr) 60 mcg IM .ONCE ONE Stop: 07/01/18 10:01 Insulin Human Regular (Novolin R) 0 unit SC [facility]; Protocol Last Admin: 07/01/18 09:03 Dose: 5 units Pneumococcal Polyvalent Vaccine (Pneumovax 23 Vaccine) 0.5 ml IM .ONCE ONE Stop: 07/01/18 10:01 Rosuvastatin Calcium (Crestor) 5 mg PO [facility] Last Admin: 06/30/18 22:25 Dose: 5 mg - Labs Labs: 07/01/18 07:38 07/01/18 07:38 PT 10.7 SECONDS (9.7-12.2) 06/30/18 11:48 INR 1.0 06/30/18 11:48 APTT 29 SECONDS (21-34) 06/30/18 11:48
[2018-07-01 09:30] LABS: FOLATE 8.4 ng/mL
--- NOTE | 2018-07-01 09:40 | CT ---
Date of service: 06/30/2018 PROCEDURE: CT HEAD WITHOUT CONTRAST. HISTORY: Left-sided weakness COMPARISON: Comparison made with prior CT scan brain 05/31/2017. TECHNIQUE: Axial computed tomography images were obtained through the head/brain without intravenous contrast. Radiation dose: Total exam DLP = 1164.87 mGy-cm. This CT exam was performed using one or more of the following dose reduction techniques: Automated exposure control, adjustment of the mA and/or kV according to patient size, and/or use of iterative reconstruction technique. FINDINGS: HEMORRHAGE: No intracranial hemorrhage. BRAIN: Minimal chronic periventricular white matter ischemic changes. Questionable chronic lacunar-type infarct left lateral basal ganglia.. Mild generalized volume loss. Mild vascular calcifications both carotid siphons. No obvious parenchymal nor extra-axial mass or collection. VENTRICLES: Unremarkable. No hydrocephalus. CALVARIUM: Unremarkable. PARANASAL SINUSES: Unremarkable as visualized. No significant inflammatory changes. MASTOID AIR CELLS: Unremarkable as visualized. No inflammatory changes. OTHER FINDINGS: Changes of bilateral cataract surgery. IMPRESSION: Intracranial hemorrhage. Minor chronic periventricular white matter ischemic changes. Questionable chronic lacunar-type infarct left lateral basal ganglia.
[2018-07-01] MEDS ORDERED: Enoxaparin 40 mg Syringe SC SCH (10:00)
[2018-07-01] MEDS ORDERED: Influenza Vaccine 60 mcg/0.5 mL SYR (4YR UP) IM ONE (10:00)
[2018-07-01] MEDS ORDERED: Pneumococcal 23-Valent Vaccine IM ONE (10:00)
--- NOTE | 2018-07-01 12:26 | MRI ---
Date of service: 07/01/2018 PROCEDURE: MR CERVICAL SPINE WITHOUT CONTRAST HISTORY: HNP /MYELOPATHY COMPARISON: None available. TECHNIQUE: Multiecho multiplanar sequences were performed through the cervical spine without the use of intravenous contrast. FINDINGS: There is degenerative 4 mm anterior listhesis of C4 on C5. There straightening of the cervical spine with loss of normal cervical lordosis. There are advanced degenerative endplate marrow changes at C5-6, otherwise bone marrow signal is within normal limits. 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 The craniocervical junction is normal. 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 There is multilevel dorsal and ventral indentation of the ventral thecal sac due to multilevel spinal canal stenosis. C2-C3: Broad-based disc osteophyte complex and central disc protrusion without central spinal canal stenosis. No neural foraminal narrowing. C3-C4: Disc osteophyte complex with superimposed broad-based central disc protrusion indents the ventral thecal sac with moderate spinal canal stenosis mild bilateral facet arthropathy contribute to moderate right and mild left neural foraminal narrowing . C4-C5: Disc osteophyte complex with superimposed central disc extrusion indents the ventral cord with moderate to severe spinal canal stenosis. Mild bilateral facet arthropathy contribute to severe neural foraminal narrowing, worse on the right. . C5-C6: Disc osteophyte complex with superimposed central, left paracentral, left posterolateral and foraminal disc protrusion abuts the ventral cord with moderate spinal canal stenosis. Mild bilateral facet arthropathy contribute to moderate right and severe left neural foraminal narrowing with impingement of the exiting left C6 nerve root C6-C7: Disc osteophyte complex with superimposed right paracentral disc protrusion indents the ventral thecal sac with mild spinal canal stenosis. Mild bilateral facet arthropathy contribute to mild right and severe left neural foraminal narrowing. C7-T1: No disc herniation, spinal canal stenosis or neural foraminal narrowing. OTHER FINDINGS: The paraspinous soft tissues are normal. IMPRESSION: 1. 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 2. At C4-5 disc osteophyte complex with superimposed central disc extrusion indents the ventral cord with moderate to severe spinal canal stenosis. No intrinsic cord signal abnormality.
[2018-07-01] MEDS ORDERED: (Novolin R) Insulin Human Regular 100 units/ml vial IVP ONE (12:39)
[2018-07-01 12:46] LABS: FOLATE 8.3 ng/mL
--- NOTE | 2018-07-01 14:54 | CON ---
DATE: 07/01/2018 NEUROLOGY CONSULTATION ATTENDING PHYSICIAN: Zehra Mosher MD ROOM: 665, bed B. REASON FOR CONSULTATION: Left leg pain. CHIEF COMPLAINT: The patient was brought into [facility] with a history of worsening left leg pain. From neurological point of view, I was called into evaluate him for further management. HISTORY OF PRESENT ILLNESS: Mr. Juliano Claros is a 73-year-old normally built Ugandan-speaking male presenting with recently worsening left foot pain mostly on his left lateral aspect of his foot. This pain is persistent in nature, mostly worse at nighttime associating with tingling and burning sensation. He denies any focal weakness of his leg. No history of fall. No history of trauma to his back as well as his neck. At times, pain is coming from his left side of his neck all the way down to the leg. No bowel and bladder incontinence. No history of headache. No history of fall. No history of visual or bulbar dysfunction. No history of involuntary movements or loss of consciousness. PAST MEDICAL HISTORY: Diabetes mellitus, depression, dyslipidemia, and hypertension. PERSONAL HISTORY Denies smoking or alcohol use. ALLERGIES: NO KNOWN ALLERGIES. REVIEW OF SYSTEMS: 12-point system being reviewed. From neuro, worsening left leg pain. MEDICATIONS: Lipitor, aspirin, Norvasc, Ranexa, Altace, Paxil and metformin. PHYSICAL EXAMINATION: VITAL SIGNS: Blood pressure 124/74, mean artery pressure of 92, respiratory rate 18, pulse rate 56 regular, temperature 97.2. NECK: Supple. No carotid bruits. HEART: Sounds irregular. CHEST: Fair air entry. EXTREMITIES: No edema in the legs. NEUROLOGIC: MENTAL STATUS EXAM: He is awake, alert, oriented to person, place, and time. Speech is clear. Naming, repetition, fluency, comprehension all within normal. He is communicable only in Ugandan. CRANIAL NERVE EXAM: Visual field intact. Pupils reactive to light. Extraocular movement normal. No nystagmus. No facial sensory deficit. No facial asymmetry. Hearing is decreased. Tongue is midline. Good gag. MOTOR EXAMINATION: Outstretched hand with eyes closed, no drift noted. Power is symmetric on either side. Mildly distal muscle groups, atrophy noted in both hands and feet. Deep tendon reflexes biceps, 2+ brachioradialis 2+ on either side, left triceps absent, right triceps 1+. Fingers are trace. Both knees are 3+. Both ankles are absent. Plantars are upgoing on his left side, right side was downgoing. SENSORY EXAMINATION: Hyperesthesia over the left L5 dermatome. Left leg seems to be slightly externally rotated compared with his right side. Gait is normal. CONCLUSION: On reviewing his history from the medical records, as well as from him and as per my neurological examination, the patient does have possible cervical myelopathy at C6-C7 region associating with possible mononeuropathy and bilateral distal symmetric sensory motor neuropathy which is probably secondary to his underlying uncontrolled diabetes mellitus. Workup: CT of the head being reviewed, no acute pathology is noted. Mild atrophy and small vessel disease noted. EKG normal, normal sinus rhythm. Blood workup, WBC 6.3, hemoglobin 13.2, hematocrit 38.1, platelet 207. PT 10.7, INR 1, PTT 29. Sodium 133, potassium 4.3, chloride 99, bicarbonate 24, glucose 478, calcium 9.1. ALT is 7, AST 25, alkaline phosphatase 173. Urine shows 3+ glycosuria, ketones are negative. RECOMMENDATIONS: 1. Increase the gabapentin dose to 300 three times a day. 2. Diabetic control. 3. MRI of the cervical spine to rule out HNP versus superimposed myelopathy. The patient should get out of the bed and the therapy can be benefited to improve his gait and pain control. I do not advise him to be on narcotic or any further pain management at this point. The patient's condition being well discussed in Ugandan. The patient understand my recommendation and workup. The patient will be followed closely with you. Meño Woodard MD
--- NOTE | 2018-07-01 15:31 | CARD ---
APPROVED REPORT Date of service: 06/30/2018 EKG Measurement Heart [id number] <Conclusion> Normal sinus rhythm Normal ECG
[2018-07-01] MEDS: Sodium Chloride 0.45% 1,000 ML IV SCH (16:08)
--- NOTE | 2018-07-01 17:14 | RAD ---
Date of service: 07/01/2018 PROCEDURE: Left Foot Radiographs. HISTORY: pain COMPARISON: None. FINDINGS: BONES: There is diffuse bone demineralization. There is no acute displaced fracture or bone destruction. Bone alignment is normal. There is a prominent plantar calcaneal spur. JOINTS: Normal. SOFT TISSUES: Normal. OTHER FINDINGS: None. IMPRESSION: No acute fracture or dislocation.
[2018-07-01] MEDS: (Novolog) Insulin Aspart, Recombinant 100 u/ml 10 ml vial SC SCH ×3 (17:31→22:32)
--- NOTE | 2018-07-01 20:06 | PN ---
DATE: 07/01/2018 SUBJECTIVE: The patient is seen and examined at bedside. The patient offers no new complaints. His pain is slightly better than yesterday. Denies any other weakness or any other complaints. PHYSICAL EXAMINATION: GENERAL: Elderly male, sitting in chair, in no acute distress. VITAL SIGNS: Blood pressure 152/70, pulse 58, respirations 20, temperature 97.4 degrees Fahrenheit, O2 sats 95% on room air. HEENT: Pupils equal, round, and reacting to light and accommodation. Extraocular muscles intact. No icterus. No pallor. No oral thrush. No pharyngeal congestion. NECK: Supple. No JVD. LUNGS: Bilateral vesicular breath sounds. No wheezing. No rhonchi. CARDIOVASCULAR SYSTEM: S1 and S2 present, regular. ABDOMEN: Soft, nontender. Bowel sounds present. No guarding. No rigidity. No rebound tenderness noted. CENTRAL NERVOUS SYSTEM: Alert, awake, oriented x3. No focal deficits noted. EXTREMITIES: No edema. Palpable peripheral pulses. MEDICATIONS: Include aspirin 325 mg daily, Neurontin 300 mg p.o. t.i.d., heparin 5000 units subcutaneous every 12 hours, insulin NovoLog 12 units subcutaneous before meals, Lantus 30 units at bedtime, Crestor 5 mg p.o. at bedtime, half-normal saline at 100 mL/hour. LABORATORY DATA: Labs done from this morning. WBC 9.8, hemoglobin 12.1, hematocrit 34.5, platelets 205. Sodium 130, potassium 4.5, chloride 98, bicarb 24, BUN 18, creatinine 1.6, glucose 478, hemoglobin A1c 14, calcium 9.3, phosphorus 3.4, magnesium 2.4, AST 17, ALT 11, alkaline phosphatase 136. C-reactive protein 6.5, total protein 6.7, albumin 3.9. Triglycerides 273, cholesterol 203, LDL 108, HDL 29. B12 of 661, folate 8.3, TSH 0.93. UA glucose 3+. 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 ASSESSMENT AND PLAN: Elderly male with history of hypertension, diabetes mellitus, hyperlipidemia, peripheral arterial disease, depression, coronary artery disease, admitted for left upper extremity pain and left lower extremity pain. CT of the lumbar spine consistent with multilevel degenerative joint disease and cervical spine consistent with multilevel degenerative joint disease, uncontrolled diabetes mellitus. Neurology input appreciated. We will start Neurontin, and he needs his insulin adjustment and other diabetic medication adjustment. We will continue with other current medication. We will repeat labs in a.m. Zehra Mosher MD
[2018-07-01] MEDS ORDERED: (Lantus) Insulin Glargine, Recombinant SC SCH (22:00)
--- NOTE | 2018-07-01 22:53 | CON ---
DATE: 07/01/2018 ENDOCRINOLOGY CONSULTATION LOCATION: Room 665. HISTORY OF PRESENT ILLNESS: This is a 73-year-old male with known history of type 2 diabetes, hypertension, presenting here with severe left leg painful neuropathy and is now being referred for diabetic evaluation because of persistent hyperglycemic accelerations and glucose levels over 300 to 400 on a day-to-day basis since admission with an A1c level of 14%. PAST MEDICAL HISTORY: History of type 2 diabetes, on metformin taken as 1 g b.i.d.; history of hypertension and dyslipidemia; history of previous TIA with no residual weakness; history of coronary artery disease with prior coronary stent placements; history of underlying peripheral arterial disease and vasculopathy; also history of diabetic retinopathy and painful polyneuropathy with underlying chronic kidney disease; history of generalized anxiety and depression, on psychotropic medications; history of diverticulitis and chronic gastritis; history of nephrolithiasis with no recent stone passage; history of a previous admission for pancreatitis as noted. FAMILY HISTORY: Positive for diabetes and hypertension. SOCIAL HISTORY: The patient has supportive family. No known substance use. REVIEW OF SYSTEMS: Admits to generalized body weakness with easy fatigability and tiredness and suboptimal energy level. Also admits to episodic dizziness and lightheadedness, worse in the last week or so prior to admission. No chest pains or palpitations but admits to progressive shortness of breath especially on exertion. His oral intake has been variable with nausea and dyspepsia and vague lower pelvic pain. Also admits to marked polyuria, nocturia, and polydipsia as noted. Moreover admits to lower extremity painful paresthesia especially nocturnally. PHYSICAL EXAMINATION: GENERAL: Average-built male, in no apparent distress. VITAL SIGNS: With a blood pressure of 150/90, pulse of 100 beats per minute and regular, temperature 98, respirations 20. Height is 5 feet 4 inches. Weight is 160 pounds. HEENT: Head: Normocephalic. Eyes: Anicteric with pink conjunctivae. Funduscopy is not possible at this time. Ears, nose and throat otherwise normal. NECK: Supple. Thyroid gland is normal in size. No carotid bruits or any cervical adenopathy. CARDIOPULMONARY: Some adynamic precordium. S1 and S2 are rapid and regular. LUNGS: Clear to auscultation. ABDOMEN: Flat, soft with positive bowel sounds. EXTREMITIES: No peripheral edema. Pulses are +2 bilaterally. LABORATORY DATA: His chemistry showed a BUN of 18, sodium 130, potassium 4.5, chloride 98, CO2 of 24, glucose 363, and creatinine 1.6. His glucose levels have been extremely elevated over the last four to eight hours ranging from 468 to 478 mg/dL as noted. His hemoglobin A1c is 14% which is quite elevated and indicative of suboptimal metabolic control of his diabetic condition even prior to this admission and clearly insulin requiring at this time. His lipid shows triglycerides of 273, cholesterol of 203, HDL of 29, LDL of 108. ASSESSMENT: This is a 73-year-old male with uncontrolled and decompensated type 2 insulin-requiring diabetes with marked hyperglycemic accelerations and possible secondary pancreatic failure and clearly insulin requiring at this time with an extremely elevated A1c of 14% indicative of suboptimal metabolic control of his diabetic condition even prior to this admission. Moreover, he also has diabetic microvascular complications of retinopathy, painful polyneuropathy, and nephropathy with underlying chronic kidney disease, indicative of longstanding suboptimal metabolic control of his diabetic condition. Moreover, he has diabetic macrovascular complications of cerebrovascular disease with a previous transient ischemic event with no residual weakness with coronary artery disease and a prior coronary stent placement and underlying peripheral arterial disease and vasculopathy. Moreover, the patient also has marked glucotoxicity with a biochemical evidence of marked hyperglycemic accelerations which clearly will respond only to insulin therapy and not oral agents because of the underlying increased insulin resistance thereof. PLAN OF MANAGEMENT: We will clearly initiate basal and bolus insulin drug combination which is not only more physiologic to optimize metabolic control at this time but also because of the underlying diabetic microvascular and macrovascular complications. Would clearly need a tight metabolic control of his diabetic condition as noted otherwise. We will add basal insulin with Lantus given as 30 units subcu at bedtime daily to start tonight. We will add prandial insulin with NovoLog given as 12 units t.i.d. before meals to start at dinner time today as ordered. We will modify the coverage scale to a very low-dose algorithm using NovoLog insulin to obviate hypoglycemia and detailed orders have been given. We will re-initiate IV hydration because of persistent hyponatremia which clearly the patient has increased volume depletion from the increased osmotic diuresis from the marked hyperglycemic accelerations as noted thereof. We will obtain serial chemistries and supplement accordingly as needed. We will also initiate diabetic education to include insulin self-administration and home glucose monitoring. We will consult a diabetic nurse educator, Ms. Fouzia Agustin, regarding the aforementioned. We will also initiate dietary evaluation for nutritional counseling and healthy food choices. Giulia Mittal MD
[2018-07-02] MEDS: Sodium Chloride 0.45% 1,000 ML IV SCH ×3 (01:15→11:54)
[2018-07-02 01:52] VITALS: O2SAT 97
[2018-07-02] MEDS: (Novolog) Insulin Aspart, Recombinant 100 u/ml 10 ml vial SC SCH ×4 (07:31→11:53)
[2018-07-02 08:09] VITALS: BP 138/75; PULSE 68; TEMP 98
--- NOTE | 2018-07-02 08:45 | CP.PCM.PN ---
Subjective - Date & Time of Evaluation Date of Evaluation: 07/02/18 Time of Evaluation: 07:05 - Subjective Subjective: Pgy3 Internal Medicine Resident Endocrinology Progress note for Dr. Mittal Patient seen and examined. No acute events overnight. Patient resting comfortably and was OOB to chair. He denied acute complaints of fever, chills, headache, dizziness, chest pain, SOB, abd pain, nausea, vomiting, bowel/bladder complaints. Patient does have some b/l LE pain and numbness/tingling. He is eager to be discharged home. Objective - Vital Signs/Intake and Output Vital Signs (last 24 hours): Temp Pulse Resp BP Pulse Ox 98.0 F 68 20 138/75 97 07/02/18 07:30 07/02/18 07:30 07/02/18 07:30 07/02/18 07:30 07/02/18 07:30 Intake and Output: 07/02/18 07/02/18 06:59 18:59 Intake Total 900 Output Total 800 Balance 100 - Medications Medications: Current Medications Aspirin (Ecotrin) 325 mg PO DAILY [facility] Last Admin: 07/01/18 09:02 Dose: 325 mg Gabapentin (Neurontin) 300 mg PO TID [facility] Last Admin: 07/01/18 17:32 Dose: 300 mg Heparin Sodium (Porcine) (Heparin) 5,000 units SC Q12 [facility] Last Admin: 07/01/18 22:48 Dose: 5,000 units Sodium Chloride (Sodium Chloride 0.45%) 1,000 mls @ 100 mls/hr IV .Q10H [facility] Last Admin: 07/02/18 05:24 Dose: 100 mls/hr Insulin Aspart (Novolog) 12 unit SC AC [facility] Last Admin: 07/02/18 08:30 Dose: 12 units Insulin Aspart (Novolog) 0 unit SC ACHS [facility] Last Admin: 07/02/18 07:31 Dose: Not Given Insulin Glargine (Lantus) 30 unit SC HS [facility] Last Admin: 07/01/18 22:48 Dose: 30 units Rosuvastatin Calcium (Crestor) 5 mg PO HS [facility] Last Admin: 07/01/18 22:48 Dose: 5 mg - Labs Labs: 07/01/18 07:38 07/01/18 07:38 PT 10.7 SECONDS (9.7-12.2) 06/30/18 11:48 INR 1.0 06/30/18 11:48 APTT 29 SECONDS (21-34) 06/30/18 11:48 - Constitutional Appears: Non-toxic, No Acute Distress - Head Exam Head Exam: ATRAUMATIC, NORMAL INSPECTION, NORMOCEPHALIC - Eye Exam Eye Exam: EOMI, Normal appearance. absent: Conjunctival injection, Scleral icterus - Neck Exam Neck Exam: Full ROM, Normal Inspection - Respiratory Exam Respiratory Exam: Clear to Ausculation Bilateral, NORMAL BREATHING PATTERN. absent: Accessory Muscle Use, Rales, Rhonchi, Wheezes, Respiratory Distress - Cardiovascular Exam Cardiovascular Exam: REGULAR RHYTHM, +S1, +S2 - GI/Abdominal Exam GI & Abdominal Exam: Soft, Normal Bowel Sounds. absent: Firm, Guarding, Tenderness - Rectal Exam Rectal Exam: Deferred - Extremities Exam Extremities Exam: Normal Capillary Refill. absent: Pedal Edema - Neurological Exam Neurological Exam: Alert, Awake, Oriented x3 - Psychiatric Exam Psychiatric exam: Normal Affect, Normal Mood - Skin Skin Exam: Dry, Intact, Normal Color, Warm Assessment and Plan - Assessment and Plan (Free Text) Assessment: 73yo male PMHx T2DM, HTN, HLD, TIA, CAD w/ stents, PAD and vasculopathy presented with LLE neuropathy. Endocrinology consulted for uncontrolled DM Plan: Uncontrolled T2DM HgbA1c noted to be 14. Patient's overnight accuchecks noted and this AM blood work reviewed. Will continue 12U Novolog before meals TID and Lantus 30U HS. RISS on board for coverage as needed. Will also continue Neurontin 300tid. Patient will need strict outpatient follow up. senior health educator consulted. Co ntinue further management as per primary. Discussed with Dr. Kyrie Roblero PGY3
--- NOTE | 2018-07-02 09:31 | CP.PCM.PN ---
Subjective - Date & Time of Evaluation Date of Evaluation: 07/02/18 Time of Evaluation: 09:31 - Subjective Subjective: Discharge summary dictated # [id number] Objective - Vital Signs/Intake and Output Vital Signs (last 24 hours): Temp Pulse Resp BP Pulse Ox 98.0 F 68 20 138/75 97 07/02/18 07:30 07/02/18 07:30 07/02/18 07:30 07/02/18 07:30 07/02/18 07:30 Intake and Output: 07/02/18 07/02/18 06:59 18:59 Intake Total 900 Output Total 800 Balance 100 - Medications Medications: Current Medications Aspirin (Ecotrin) 325 mg PO DAILY [facility] Last Admin: 07/01/18 09:02 Dose: 325 mg Gabapentin (Neurontin) 300 mg PO TID [facility] Last Admin: 07/01/18 17:32 Dose: 300 mg Heparin Sodium (Porcine) (Heparin) 5,000 units SC Q12 [facility] Last Admin: 07/01/18 22:48 Dose: 5,000 units Sodium Chloride (Sodium Chloride 0.45%) 1,000 mls @ 100 mls/hr IV .Q10H [facility] Last Admin: 07/02/18 05:24 Dose: 100 mls/hr Insulin Aspart (Novolog) 12 unit SC AC [facility] Last Admin: 07/02/18 08:30 Dose: 12 units Insulin Aspart (Novolog) 0 unit SC ACHS [facility] Last Admin: 07/02/18 07:31 Dose: Not Given Insulin Glargine (Lantus) 30 unit SC HS [facility] Last Admin: 07/01/18 22:48 Dose: 30 units Rosuvastatin Calcium (Crestor) 5 mg PO HS [facility] Last Admin: 07/01/18 22:48 Dose: 5 mg - Labs Labs: 07/01/18 07:38 07/01/18 07:38 PT 10.7 SECONDS (9.7-12.2) 06/30/18 11:48 INR 1.0 06/30/18 11:48 APTT 29 SECONDS (21-34) 06/30/18 11:48
[2018-07-02] MEDS: Aspirin 325 mg EC Tablets PO SCH (09:44)
--- NOTE | 2018-07-02 12:02 | PN ---
DATE: 07/02/2018 NEUROLOGICAL PROBLEM: Cervical myelopathy and peripheral neuropathy with cervical as well as lumbosacral stenosis. PHYSICAL EXAMINATION: VITAL SIGNS: Blood pressure 163/83, mean arterial pressure 109, respiratory rate 18, temperature 97.6 with a pulse rate of 57. GENERAL: The patient is comfortably sitting in the chair. Mentation is normal. He is ambulatory by himself. RECOMMENDATIONS: He is recommended MRI of the cervical spine consistent with cervical myelopathy with mild cord impingement and left C6 neuroforaminal stenosis with multi-degenerative disease in the neck. Lumbar stenosis as per CAT scan findings. From Neurology point of view, the patient is stable to be discharged and titrated his Neurontin to 300 three times a day. He is tolerating well. The patient is advised to see me as followup as outpatient for further workup of his cervical as well as lumbosacral disc disease and myelopathy. Meño Woodard MD
--- NOTE | 2018-07-03 08:27 | DS ---
DISCHARGE DIAGNOSES: Cervical myelopathy and lumbar radiculopathy with degenerative disc disease and lumbar stenosis, uncontrolled diabetes mellitus, hypertension, hyperlipidemia, peripheral arterial disease, depression and coronary artery disease. HISTORY OF PRESENT ILLNESS: Mr. Claros is a 73-year-old male with history of hypertension, hyperlipidemia, diabetes mellitus, PAD, depression, CAD, status post stent placement who has been following up with Dr. Kailash Watson, came into the ED with complaints of progressive worsening of left foot pain and left upper extremity pain with tingling and numbness, progressively getting worse. In the ED, the patient had a CT of the lumbar spine which was abnormal and he was given Solu-Medrol. His sugars increased to 600 and the patient was admitted for further evaluation. Today, the patient is feeling better. Denies any headache or dizziness. Denies any chest pain, shortness of breath, or wheezing. Denies any nausea, vomiting, abdominal pain, diarrhea, or constipation. Denies any urinary complaints. His leg pain is much better. Denies any other neurologic symptoms. PHYSICAL EXAMINATION: GENERAL: Elderly male, sitting in chair, in no acute distress. VITAL SIGNS: Blood pressure 138/75, pulse 68, respirations 20, temperature 98 degrees Fahrenheit, and O2 saturation 97% on room air. HEENT: Pupils are equal, round, reacting to light and accommodation. Extraocular muscles are intact. No icterus. No pallor. No oral thrush. No pharyngeal congestion. NECK: Supple. No JVD. No thyromegaly. CHEST: Moving equally bilaterally on respiration. LUNGS: Bilateral vesicular breath sounds. No wheezing. No rhonchi. CARDIOVASCULAR SYSTEM: S1 and S2 present. Regular. ABDOMEN: Soft and nontender. Bowel sounds are present. No guarding. No rigidity. No rebound tenderness noted. CENTRAL NERVOUS SYSTEM: Alert, awake, and oriented x3. No focal deficits noted. EXTREMITIES: No edema. Palpable peripheral pulses. LABORATORY DATA: Labs from today include Accu-Chek 191, 215. WBC 9.8, hemoglobin 12.1, hematocrit 34.5, and platelets 205. Sodium 130, potassium 4.5, chloride 198, bicarb 24, BUN 18, creatinine 1.6, glucose 363, calcium 9.3, phosphorous 3.4, magnesium 2.4. AST 17, AST 11, alkaline phosphatase 136. C-reactive protein 6.5, triglycerides 273, cholesterol 203, HCl 29, B12 698, folate 8.4, TSH 0.93. Head CT negative. Cervical spine MRI consistent with myelopathy, severe spinal canal stenosis. CT lumbar spine consistent with spinal stenosis. HOSPITAL COURSE: The patient was admitted to the hospital, given insulin. His insulin regimen is adjusted, evaluated by Endocrinology. The patient had workup done, evaluated by Neurology. The patient was started on Neurontin. The patient's symptom is slightly better with Neurontin and control of sugars. As the patient is otherwise better, cleared by Neurology. The patient is being discharged. Advised the patient to follow up with PMD, Endocrinology, and Neurology as outpatient for further care. I explained to the patient via a Khmer speaking criminal lawyer and insisted the importance of following up with PMD and Neurology as outpatient and Endocrinology for a tight diabetic control. I advised the patient to continue with his home medications along with Lantus 30 units at bedtime, regular insulin 12 units with meals, and Neurontin 300 mg p.o. t.i.d. CONDITION UPON DISCHARGE: The patient is alert, awake, and oriented x3 and hemodynamically stable at the time of discharge. DISCHARGE INSTRUCTIONS: Follow up with PMD. Follow up with Endocrinology. Follow up with Neurology. Advised the patient to return to the ED for any recurrent symptoms. DIET: Low-sodium, low-cholesterol 1800 calorie ADA, heart-healthy diet. Zehra Mosher MD
--- NOTE | 2018-07-03 16:41 | PN ---
DATE: 07/02/2018 ENDOCRINOLOGY FOLLOWUP NOTE LOCATION: Room 665. SUBJECTIVE: This is a 73-year-old male with recent uncontrolled type 2 insulin requiring diabetes presenting here with severe neuropathic painful dysesthesias in both lower extremities, more prominent in the left distal area and is now being followed closely for metabolic management because of persistent hyperglycemic accelerations as noted thereof. His glucose levels today have ranged from 140 to 191 mg/dL. It was 316 to 477 yesterday as noted. His hemoglobin A1c is extremely elevated at 14%, clearly indicative of suboptimal metabolic control of his diabetic condition even prior to this admission. His last chemistry showed a BUN of 18, sodium 130, potassium 4.5, chloride 98, CO2 of 24, glucose 363 and creatinine 1.6. ASSESSMENT: This is a 73-year-old male with uncontrolled and decompensated type 2 insulin requiring diabetes with marked hyperglycemic accelerations and suboptimal metabolic control as mentioned above related to a subtherapeutic insulin regimen as noted. He also has diabetic microvascular complications of retinopathy, painful polyneuropathy and nephropathy with underlying chronic kidney disease. Moreover, he also has diabetic macrovascular complications from cerebrovascular disease with previous transient ischemic attack and coronary artery disease with previous coronary stent placement and also underlying peripheral arterial disease and vasculopathy. PLAN OF MANAGEMENT: As discussed with the patient lengthily at bedside and also with his daughter at bedside the imperative need for tighter metabolic control cannot but be overemphasized at this time. We will obtain serial chemistries and supplement accordingly as needed. We will also continue the IV hydration to optimize the normalization of his electrolyte losses as noted especially with the persistently low serum sodium as noted. We will also modify his current basal and bolus insulin regimen to optimize metabolic control. We will increase the Lantus to 30 units subcutaneous at bedtime daily to start tonight. We will also increase the NovoLog to 12 units three times daily before meals to start today as ordered. We will modify the coverage scale to obviate hypoglycemia and detailed orders have been given. We will obtain serial chemistries and supplement accordingly as needed. We will follow with you. Giulia Mittal MD
== END 2018-07-02 17:29 | disposition home or self-care (01) ==
LOC: C.ER 10:05 → C.9E 12:50 → C.6T 14:54
PROVIDERS: ADMIT Internal Medicine; ATTEND Internal Medicine
DX: E11.649 Type 2 diabetes mellitus with hypoglycemia without coma (principal); E11.65 Type 2 diabetes mellitus with hyperglycemia; E78.5 Hyperlipidemia, unspecified; I12.9 Hypertensive chronic kidney disease with stage 1 through stage 4 chronic kidney disease, or unspecified chronic kidney disease; I25.10 Atherosclerotic heart disease of native coronary artery without angina pectoris; M48.061 Spinal stenosis, lumbar region without neurogenic claudication; M50.00 Cervical disc disorder with myelopathy, unspecified cervical region; M51.16 Intervertebral disc disorders with radiculopathy, lumbar region; N18.9 Chronic kidney disease, unspecified; Z79.4 Long term (current) use of insulin
CPT/HCPCS: 36415; 70450; 72131; 72141; 73620; 80048; 80053; 80061; 81001; 82607; 82746; 82803; 82948; 83036; 83735; 84100; 84443; 84484; 85025; 85027; 85610; 85651; 85730; 86140; 86334; 93005; 93971; 96360; 96374; 97116; 97162; 99285; G0378; G8978; G8979; J1644; J1885; J2920; J7030